=== PATIENT | male | born 1980 | race Caucasian/White ===

== ENCOUNTER 2019-01-28 06:30 | Observation (INO) | payer OTHER ==
[2019-01-28] MEDS ORDERED: ONDANSETRON 4 MG INJ IV (08:30)
[2019-01-28 10:35] LABS: ADD MAN DIFF? NO
[2019-01-28 10:39] LABS: BASOPHILS % 0.7 % (0.0-2.0); EOSINOPHILS # 0.1 10^3/ul (0.0-0.5); EOSINOPHILS % 2.2 % (0.0-7.0); HEMATOCRIT 44.4 % (42.0-52.0); HEMOGLOBIN 14.7 g/dl (14.0-18.0); LYMPHOCYTES # 2.1 10^3/ul (0.8-2.9); LYMPHOCYTES % 34.5 % (15.0-51.0); MEAN CORPUSCULAR HEMOGLOBIN 29.4 pg (29.0-33.0); MEAN CORPUSCULAR HGB CONC 33.1 g/dl (32.0-37.0); MEAN CORPUSCULAR VOLUME 88.8 fl (82.0-101.0); MEAN PLATELET VOLUME 10.2 fl (7.4-10.4); MONOCYTE # 0.5 10^3/ul (0.3-0.9); NEUTROPHIL # 3.2 10^3/ul (1.6-7.5); NEUTROPHILS % 53.4 % (39.0-77.0); PLATELET COUNT 258 10^3/UL (140-415); RED CELL DISTRIBUTION WIDTH 12.3 % (11.5-14.5)
[2019-01-28 10:59] LABS: ALANINE AMINOTRANSFERASE 23 IU/L (13-69); ALBUMIN 4.1 g/dl (3.3-4.9); ALBUMIN/GLOBULIN RATIO 1.57; ALKALINE PHOSPHATASE 83 IU/L (42-121); ANION GAP 9 (5-13); ASPARTATE AMINO TRANSFERASE 24 IU/L (15-46); BILIRUBIN,INDIRECT 0.6 mg/dl (0-1.1); BILIRUBIN,TOTAL 0.6 mg/dl (0.2-1.3); BLOOD UREA NITROGEN 14 mg/dl (7-20); CALCIUM 9.2 mg/dl (8.4-10.2); CARBON DIOXIDE 25 mmol/L (21-31); CHLORIDE 107 mmol/L (97-110); CREATININE 0.84 mg/dl (0.61-1.24); Estimated GFR > 60 mL/min (>60); GLUCOSE 97 mg/dl (70-220); MAGNESIUM 2.2 mg/dl (1.7-2.5); POTASSIUM 4.2 mmol/L (3.5-5.1); SODIUM 141 mmol/L (135-144); TOTAL PROTEIN 6.7 g/dl (6.1-8.1)
[2019-01-28 11:08] LABS: B-TYPE NATRIURETIC PEPTIDE 65 PG/ML (0-125)
[2019-01-28 11:18] LABS: CHOL/HDL RATIO 3.6 RATIO; CREATINE KINASE 154 IU/L (23-200); HDL CHOLESTEROL 42 mg/dl (27-67); LDL CHOLESTEROL,CALCULATED 72 mg/dl; TRIGLYCERIDES 196 mg/dl (0-149)
[2019-01-28 11:18] LABS: CHOLESTEROL 153 mg/dl (100-200)
[2019-01-28 11:27] LABS: HEMOGLOBIN A1C 5.1 % (0-5.9)
[2019-01-28 11:31] LABS: CK INDEX 0.1; CK-MB 0.22 ng/ml (0.0-2.4); TROPONIN-I < 0.012 ng/ml (0.000-0.120)
[2019-01-28] MEDS: ACETAMINOPHEN 325 MG TAB PO (11:57)
[2019-01-28] MEDS: ENOXAPARIN 40 MG/0.4 ML SYG SC (11:59)
[2019-01-28] MEDS: SOD CHLORIDE 0.9% 1,000 ML IV ×2 (13:46→23:50)
[2019-01-28] MEDS: traMADol 50 MG TAB PO (15:55)
[2019-01-28] MEDS: METOPROLOL 25 MG TAB GTB ×2 (15:59→20:56)
[2019-01-28] MEDS: SOD CHLORIDE 0.9% 100 ML (16:07)
[2019-01-28] MEDS: IOHEXOL 100 ML (16:07)
[2019-01-28] MEDS: NITROGLYCERIN AEROSOL (4.9 GM) (16:18)
[2019-01-28 16:21] LABS: CREATINE KINASE 125 IU/L (23-200)
[2019-01-28 16:34] LABS: CK INDEX 0.2; CK-MB < 0.22 ng/ml (0.0-2.4); TROPONIN-I < 0.012 ng/ml (0.000-0.120)
[2019-01-28] MEDS: IVABRADINE HCL 5 MG TABLET PO (18:16)
[2019-01-28] MEDS: HYDROCODONE/APAP (5/325) TAB PO (21:04)
[2019-01-28 22:30] LABS: CREATINE KINASE 106 IU/L (23-200)
[2019-01-28 22:43] LABS: CK INDEX 0.2; CK-MB < 0.22 ng/ml (0.0-2.4); TROPONIN-I < 0.012 ng/ml (0.000-0.120)
[2019-01-28 23:12] LABS: AMPHETAMINE/METHAMPHETAMINE Negative (NEGATIVE); BARBITURATES Negative (NEGATIVE); BENZODIAZEPINES Negative (NEGATIVE); CANNABINOIDS Negative (NEGATIVE); COCAINE Negative (NEGATIVE); OPIATES Negative (NEGATIVE)
[2019-01-29] MEDS: SOD CHLORIDE 0.9% 1,000 ML IV (03:03)
[2019-01-29] MEDS: NITROGLYCERIN (SL) 0.4 MG TAB SL (04:08)
[2019-01-29 06:53] LABS: ADD MAN DIFF? NO
[2019-01-29 06:56] LABS: WHITE BLOOD COUNT 6.5 10^3/ul (4.8-10.8)
[2019-01-29 06:57] LABS: BASOPHILS % 0.5 % (0.0-2.0); EOSINOPHILS # 0.2 10^3/ul (0.0-0.5); EOSINOPHILS % 2.8 % (0.0-7.0); HEMOGLOBIN 13.9 g/dl (14.0-18.0); LYMPHOCYTES # 2.4 10^3/ul (0.8-2.9); LYMPHOCYTES % 36.3 % (15.0-51.0); MEAN CORPUSCULAR HEMOGLOBIN 29.6 pg (29.0-33.0); MEAN CORPUSCULAR HGB CONC 33.1 g/dl (32.0-37.0); MEAN CORPUSCULAR VOLUME 89.6 fl (82.0-101.0); MEAN PLATELET VOLUME 10.3 fl (7.4-10.4); MONOCYTE # 0.6 10^3/ul (0.3-0.9); MONOCYTES % 9.2 % (0.0-11.0); NEUTROPHIL # 3.3 10^3/ul (1.6-7.5); NEUTROPHILS % 50.9 % (39.0-77.0); PLATELET COUNT 226 10^3/UL (140-415); RED BLOOD COUNT 4.69 10^6/ul (4.70-6.10); RED CELL DISTRIBUTION WIDTH 12.1 % (11.5-14.5)
[2019-01-29 07:20] LABS: PHOSPHORUS 3.6 mg/dl (2.5-4.9)
[2019-01-29 07:33] LABS: TROPONIN-I < 0.012 ng/ml (0.000-0.120)
[2019-01-29] MEDS: ASPIRIN (EC) 81 MG TAB PO (08:59)
[2019-01-29] MEDS: METOPROLOL 25 MG TAB GTB ×2 (09:00→21:57)
[2019-01-29] MEDS: ACETAMINOPHEN 325 MG TAB PO ×2 (09:10→22:01)
[2019-01-29] MEDS: ENOXAPARIN 40 MG/0.4 ML SYG SC (09:18)
[2019-01-29] MEDS: FAMOTIDINE 20 MG TAB PO ×2 (13:04→21:56)
[2019-01-29] MEDS: HYDROCODONE/APAP (5/325) TAB PO ×2 (15:26→23:57)
[2019-01-29] MEDS: NACL 0.9% 3 ML SYG IV (21:59)
[2019-01-30] MEDS: traZODone 50 MG TAB PO (03:26)
[2019-01-30] MEDS: FAMOTIDINE 20 MG TAB PO (08:19)
[2019-01-30] MEDS: METOPROLOL 25 MG TAB GTB (08:19)
[2019-01-30] MEDS: ASPIRIN (EC) 81 MG TAB PO (08:19)
[2019-01-30] MEDS: ENOXAPARIN 40 MG/0.4 ML SYG SC (08:20)
[2019-01-30] MEDS: ACETAMINOPHEN 325 MG TAB PO (10:01)
== END 2019-01-30 12:31 | disposition home or self-care (01) ==
LOC: TEL 06:30
DX: R07.89 Other chest pain (principal); R20.0 Anesthesia of skin; K21.9 Gastro-esophageal reflux disease without esophagitis; Z72.0 Tobacco use
CPT/HCPCS: 70553; 75574; 80053; 80061; 80307; 82550; 82553; 83036; 83735; 83880; 84100; 84484; 85025; 93306; 97161; 99217; G0378